=== PATIENT | female | born 1975 | race African-American/Black ===

== ENCOUNTER 2022-09-14 15:20 | Emergency (ER) | payer OTHER ==
[2022-09-14 15:29] VITALS: BP 135/69; PULSE 68; RESP 18; TEMP 97.6; BMI 34.7
[2022-09-14 17:58] LABS: HEMOGLOBIN 13.8 GM/dL (10.7-15.3); MCH 29.3 pg (25.7-33.7); MCHC 33.7 g/dl (32.0-36.0); MEAN CELL VOLUME 86.8 fl (80-96); MEAN PLT VOLUME 9.9 fl (7.5-11.1); PLATELET COUNT 204 10^3/uL (134-434); RBC 4.73 M/mm3 (3.60-5.2); RDW 13.6 % (11.6-15.6); WHITE BLOOD COUNT 4.1 K/mm3 (4.0-10.0)
[2022-09-14 18:11] LABS: CALCIUM 9.2 mg/dL (8.5-10.1)
[2022-09-14 18:12] LABS: ALBUMIN 3.8 g/dl (3.4-5.0)
[2022-09-14 18:15] LABS: CREATININE 0.7 mg/dL (0.55-1.3)
[2022-09-14 18:16] LABS: BILIRUBIN,TOTAL 0.4 mg/dL (0.2-1); TOT PROT 7.5 g/dl (6.4-8.2)
[2022-09-14 19:09] LABS: CALCIUM 10.1 mg/dL (8.5-10.1)
[2022-09-14 19:10] LABS: BLOOD UREA NITROGEN 14.4 mg/dL (7-18)
[2022-09-14 19:15] LABS: CREATININE 0.7 mg/dL (0.55-1.3)
== END 2022-09-14 20:56 | disposition home or self-care (01) ==
LOC: JER 15:20
DX: R00.2 Palpitations (principal)
CPT/HCPCS: 36415; 71046-TC-FY; 80048; 80053; 84439; 84443; 84484; 84703; 85027; 93005; 93010; 99285-25